=== PATIENT | female | born 1935 | race Caucasian/White ===

== ENCOUNTER → 2017-01-19 | Outpatient (CLI) | payer MEDICARE, OTHER | END | disposition home or self-care (01) | LOC: PCVCCLINIC 16:15 | PROVIDERS: ATTEND Internal Medicine Cardiovascular Disease | DX: E78.5 Hyperlipidemia, unspecified (principal); I10 Essential (primary) hypertension; R53.83 Other fatigue; R07.89 Other chest pain; R06.09 Other forms of dyspnea; F31.9 Bipolar disorder, unspecified; E03.9 Hypothyroidism, unspecified | CPT/HCPCS: 80061; 93005; G0463 ==

== ENCOUNTER → 2017-01-25 | Outpatient (CLI) | payer MEDICARE, OTHER ==
[~2017-01-25] MED LIST: REGADENOSON 0.4 MG/5 ML DISP.SYRIN. IV ONE
== END | disposition home or self-care (01) ==
LOC: PCVCIMAG 07:49
PROVIDERS: ATTEND Internal Medicine Cardiovascular Disease
DX: I10 Essential (primary) hypertension (principal); E78.00 Pure hypercholesterolemia, unspecified; R06.00 Dyspnea, unspecified; R07.9 Chest pain, unspecified
CPT/HCPCS: 78452; 93017; 93306; A9500; J2785

== ENCOUNTER → 2017-03-26 | Outpatient (CLI) | payer MEDICARE, OTHER | END | disposition home or self-care (01) | LOC: PCVCIMAG 13:37 | PROVIDERS: ATTEND Internal Medicine | DX: I65.23 Occlusion and stenosis of bilateral carotid arteries (principal); R09.89 Other specified symptoms and signs involving the circulatory and respiratory systems | CPT/HCPCS: 93880 ==

== ENCOUNTER → 2018-02-25 | Outpatient (CLI) | payer MEDICARE, OTHER | END | disposition home or self-care (01) | LOC: PCVCCLINIC 15:53 | DX: I10 Essential (primary) hypertension (principal); E78.00 Pure hypercholesterolemia, unspecified; I77.810 Thoracic aortic ectasia; R94.31 Abnormal electrocardiogram [ECG] [EKG]; Z87.891 Personal history of nicotine dependence; Z79.899 Other long term (current) drug therapy | CPT/HCPCS: 80061; 93005; G0463 ==

== ENCOUNTER → 2018-02-26 | Outpatient (CLI) | payer MEDICARE, OTHER | END | disposition home or self-care (01) | LOC: PCVCIMAG 10:07 | DX: R06.00 Dyspnea, unspecified (principal); I10 Essential (primary) hypertension | CPT/HCPCS: 93005; 93306; G0463 ==

== ENCOUNTER → 2018-09-05 | Outpatient (CLI) | payer MEDICARE, OTHER | END | disposition home or self-care (01) | LOC: PCVCCLINIC 14:44 | PROVIDERS: ATTEND Internal Medicine Cardiovascular Disease | DX: I10 Essential (primary) hypertension (principal); E78.5 Hyperlipidemia, unspecified; E78.00 Pure hypercholesterolemia, unspecified; J45.909 Unspecified asthma, uncomplicated; I77.810 Thoracic aortic ectasia; R06.02 Shortness of breath; E03.9 Hypothyroidism, unspecified; M85.80 Other specified disorders of bone density and structure, unspecified site; Z87.891 Personal history of nicotine dependence | CPT/HCPCS: 80061; 93005; G0463 ==

== ENCOUNTER → 2019-03-20 | Outpatient (CLI) | payer MEDICARE, OTHER ==
--- NOTE | 2019-03-20 15:40 | PCVCIMAG ---
APPROVED REPORT Study performed: 03/20/2019 12:58:52 EXAM: Comprehensive 2D, Doppler, and color-flow Echocardiogram Patient Location: Echo lab Status: routine BSA: 1.85 HR: 64 bpmBP: 118/80 mmHg Rhythm: NSR Other Information Study Quality: Technically Difficult Risk Factors: Cardiac Risk Factors: HTN, Hyperlipidemia Indications Dyspnea Asthma, Dilated Ascending Aorta 2D Dimensions IVSd: 12.67 (7-11mm)LVOT Diam: 18.10 (18-24mm) LVDd: 43.80 mm PWd: 10.65 (7-11mm)Ascending Ao: 39.82 (22-36mm) LVDs: 24.28 (25-40mm) Left Atrium: 40.24 (27-40mm) Aortic Root: 32.61 mm LV Single Plane 4CH: 50.76 % Volumes Left Atrial Volume (Systole) Single Plane 4CH: 15.29 mLSingle Plane 2CH: 35.30 mL LA ESV Index: 16.00 mL/m2 Aortic Valve AoV Peak Karri.: 1.43 m/s AO Peak Gr.: 8.20 mmHg Mitral Valve E/A Ratio: 0.0 MV E Max Karri.: 0.54 m/s MV A Karri.: 0.00 m/s IVRT: 121.11 ms Pulmonary Vein P Vein S: 0.43 m/sP Vein A: 0.34 m/s P Vein D: 0.33 m/sP Vein A Dur.: 110.7 msec P Vein S/D Ratio: 1.30 Left Ventricle The left ventricle is normal size. There is normal LV segmental wall motion. There is normal left ventricular wall thickness. Left ventricular systolic function is normal. The left ventricular ejection fraction is within the normal range. LVEF is 55-60%. The left ventricular diastolic function is normal. Right Ventricle The right ventricle is normal size. The right ventricular systolic function is normal. Atria The left atrium size is normal. The right atrium size is normal. Aortic Valve The aortic valve is normal in structure. No aortic regurgitation is present. There is no aortic valvular stenosis. Mitral Valve The mitral valve is normal in structure. There is no mitral valve regurgitation noted. No evidence of mitral valve stenosis. Tricuspid Valve The tricuspid valve is normal in structure. There is no tricuspid valve regurgitation noted. Pulmonic Valve The pulmonary valve is normal in structure. There is no pulmonic valvular regurgitation. Great Vessels The aortic root is normal in size. The ascending aorta is borderline dilated measuring 4.0cm. IVC is normal in size and collapses >50% with inspiration. Pericardium There is no pericardial effusion. <Conclusion> The left ventricle is normal size. LVEF is 55-60%. The left ventricular diastolic function is normal. The right ventricle is normal size. The left atrium size is normal. The aortic valve is normal in structure. There is no mitral valve regurgitation noted. There is no tricuspid valve regurgitation noted. The aortic root is normal in size. The ascending aorta is borderline dilated measuring 4.0cm. There is no pericardial effusion.
== END | disposition home or self-care (01) ==
LOC: PCVCIMAG 12:43
PROVIDERS: ATTEND Internal Medicine Cardiovascular Disease
DX: J45.909 Unspecified asthma, uncomplicated (principal); I77.810 Thoracic aortic ectasia; E78.00 Pure hypercholesterolemia, unspecified; I10 Essential (primary) hypertension; R06.00 Dyspnea, unspecified; E03.9 Hypothyroidism, unspecified; M85.88 Other specified disorders of bone density and structure, other site; Z87.891 Personal history of nicotine dependence
CPT/HCPCS: 36415; 80061; 93005; 93306; G0463